=== PATIENT | female | born 1970 | race Hispanic/Latino ===

== ENCOUNTER 2023-02-07 13:00 | Outpatient (RCR) | payer OTHER ==
[~2023-02-07 13:00] MED LIST: CENTRUM MULTIV1 EACH PO; LEVOTHYROXINE75 MCG PO; LIOTHYRONINE SO5 MCG PO; POTASSIUM PO
== END 2023-02-10 ==
LOC: PT 13:00
PROVIDERS: ATTEND Physician Assistant
DX: M47.897 Other spondylosis, lumbosacral region (principal)

== ENCOUNTER 2023-02-12 12:59 | Outpatient (RCR) | payer OTHER | END 2023-03-13 | LOC: PT 12:59 | PROVIDERS: ATTEND Physician Assistant | DX: M47.817 Spondylosis without myelopathy or radiculopathy, lumbosacral region (principal) ==